=== PATIENT | male | born 1975 | race Caucasian/White ===

== ENCOUNTER 2021-12-07 20:59 | Emergency (ER) | payer BC ==
[2021-12-07 21:10] VITALS: BP 132/94; PULSE 82; TEMP 99.5; BMI 29.1
== END 2021-12-07 21:42 | disposition home or self-care (01) ==
LOC: FER 20:59
DX: R25.1 Tremor, unspecified (principal)
CPT/HCPCS: 99281-25

== ENCOUNTER 2022-08-25 19:45 | Emergency (ER) | payer BC, OTHER ==
[2022-08-25 19:59] VITALS: BMI 29.2
[2022-08-25 21:59] VITALS: BP 126/89; PULSE 90; RESP 16; TEMP 98.7
[2022-08-25] MEDS ORDERED: HIV POST EXPOSURE PROPHYLAXIS KIT NR ONE (22:39)
[2022-08-25] MEDS ORDERED: HIV POST EXPOSURE PROPHYLAXIS KIT PO ONE (22:45)
[2022-08-26 01:01] LABS: HIV INTERPRETATION NEGATIVE (NEGATIVE)
== END 2022-08-25 23:16 | disposition home or self-care (01) ==
LOC: FER 19:45
DX: S61.233A Puncture wound without foreign body of left middle finger without damage to nail, initial encounter (principal); W46.1XXA Contact with contaminated hypodermic needle, initial encounter
CPT/HCPCS: 36415; 86704; 86803; 87340; 87389; 87517; 99283-25